=== PATIENT | female | born 1975 | race Two or more races ===

== ENCOUNTER 2021-11-17 21:59 | Emergency (ER) | payer OTHER ==
[~2021-11-17] VITALS: Ht 162.6 cm; Wt 56.7 kg
[2021-11-18] MEDS ORDERED: PROVENTIL HFA6.7 GM IH (04:43)
[2021-11-18] MEDS ORDERED: ALBUTEROL2.5 MG/3 M IH (04:43)
[2021-11-18] MEDS ORDERED: SYMBICORT 16010.2 GM IH (04:44)
== END 2021-11-18 04:55 ==
LOC: ER 21:59
DX: J45.909 Unspecified asthma, uncomplicated (principal); A49.3 Mycoplasma infection, unspecified site; Z20.822 Contact with and (suspected) exposure to COVID-19

== ENCOUNTER 2022-07-12 15:17 | Inpatient (IN) | payer OTHER ==
[~2022-07-12] VITALS: Ht 160 cm; Wt 47.6 kg
[~2022-07-12 15:17] MED LIST: ALBUTEROL2.5 MG/3 M IH; PROVENTIL HFA6.7 GM IH; SYMBICORT 16010.2 GM IH
--- NOTE | 2022-07-12 15:46 | NUR ---
PTE LLEGA EN AMBULANCIA SE OBERVA CON SOB, EMT REFIERE QUE PTE PADECE DE ASMA. PTE AL MOMENTO NO PUEDE VERBALIZAR, SATURANDO 90%, ROOM AIR. SE NOTIFICA A SOBRE STATUS DE PTE EL REFIERE UBICARLA EN AREA DE OBSERVACION. SE NOTIFICA A TR SOBRE ABG Y TERAPIA DE OXIGENO.
--- NOTE | 2022-07-12 17:56 | NUR ---
SE RECIBE PACIENTE EN AREA DE CHEST PAIN, SE COLOCA PACIENTE EN MONITOR CARDIACO Y OXIMETRIA DE PULSO, SE LE ABRE SEGUNDA CANALIZACION A PACIENTE EN BRAZO KEYANA. SE ADMINISTRAN MED JOSUE ORDEN, SE COLECTAN MUESTRAS PENDIENTES. SE MANTIENE PACIENTE BAJO OBSERVACION EN ESPERA A REAIZARSE ESTUDIO DE CT
== END 2022-07-15 10:48 | disposition home or self-care (01) | DRG 202 ==
LOC: ER 15:17 → MEDI 23:15 → SEC-K 23:15 → SURG 07-13 02:12 → SEC-K 07-13 07:52 → MEDI 07-13 13:20
PROVIDERS: ADMIT Internal Medicine; ATTEND Internal Medicine
PROC: 5A0935A Assistance with Respiratory Ventilation, Less than 24 Consecutive Hours, High Flow/Velocity Cannula (ICD-10-PCS; principal; 2022-07-12)
PROC: 3E0F7GC Introduction of Other Therapeutic Substance into Respiratory Tract, Via Natural or Artificial Opening (ICD-10-PCS; 2022-07-12)
PROC: BW24ZZZ Computerized Tomography (CT Scan) of Chest and Abdomen (ICD-10-PCS; 2022-07-12)
PROC: 4A12X4Z Monitoring of Cardiac Electrical Activity, External Approach (ICD-10-PCS; 2022-07-13)
DX: J45.901 Unspecified asthma with (acute) exacerbation (principal); J18.9 Pneumonia, unspecified organism; J45.902 Unspecified asthma with status asthmaticus; Z20.822 Contact with and (suspected) exposure to COVID-19